=== PATIENT | male | born 1945 | race Two or more races ===

== ENCOUNTER 2019-05-12 08:00 | Day surgery (SDC) | payer OTHER ==
[~2019-05-12] VITALS: Ht 180.3 cm; Wt 68.0 kg
[2019-05-12] MEDS ORDERED: BARACLUDE0.5 MG (15:16)
== END 2019-05-13 08:00 | disposition home or self-care (01) ==
LOC: CIR.AMB 08:00 → ER 14:42 → SURG 19:28 → ER 19:28 → SEC-K 19:28 → SURG 20:11 → SEC-K 20:11 → CIR.AMB 05-13 08:00 → EDSTATUS 05-13 12:45 → SURG 05-13 15:41
DX: N20.1 Calculus of ureter (principal); Z88.8 Allergy status to other drugs, medicaments and biological substances

== ENCOUNTER → 2019-05-29 13:00 | Day surgery (SDC) | payer OTHER ==
[~2019-05-29] VITALS: Ht 180.3 cm; Wt 68.0 kg
[~2019-05-29 13:00] MED LIST: BARACLUDE0.5 MG
== END | disposition home or self-care (01) ==
LOC: CIR.AMB 07:00 → ER 16:01 → SEC-K 16:39 → ER 16:39 → O/R 16:39 → SEC-K 19:06 → EDSTATUS 19:30 → O/R 21:00 → SEC-K 21:00 → CIR.AMB 22:35
DX: T83.091A Other mechanical complication of indwelling urethral catheter, initial encounter (principal)

== ENCOUNTER → 2024-10-07 | Outpatient (CLI) | payer OTHER | END | disposition home or self-care (01) | LOC: NUCLEAR 09:43 | PROVIDERS: ATTEND Family Medicine | DX: R01.1 Cardiac murmur, unspecified (principal) ==

== ENCOUNTER 2025-01-27 10:25 | Outpatient (CLI) | payer OTHER | END 2025-01-27 10:26 | disposition home or self-care (01) | LOC: NUCLEAR 10:25 | PROVIDERS: ATTEND Family Medicine | DX: I49.9 Cardiac arrhythmia, unspecified (principal) ==